=== PATIENT | female | born 1965 | race Caucasian/White ===

== ENCOUNTER 2021-09-22 08:30 | Emergency (ER) | payer OTHER ==
[2021-09-22 09:00] VITALS: BMI 24.0
[2021-09-22] MEDS ORDERED: CASIRIVIMAB/IMDEVIMAB 10 ML in SODIUM CHLORIDE 100 ML IVPB ONE (09:23)
[2021-09-22 12:30] VITALS: BP 122/74; PULSE 78; TEMP 98.6
== END 2021-09-22 12:28 | disposition home or self-care (01) ==
LOC: JER 08:30
DX: U07.1 COVID-19 (principal)
CPT/HCPCS: 99284-25; Q0240